=== PATIENT | female | born 1980 | race Caucasian/White ===

== ENCOUNTER 2025-10-03 19:16 | Emergency (ER) | payer MEDICAID ==
[~2025-10-03] VITALS: Ht 167.6 cm; Wt 80.1 kg
[2025-10-03 19:21] VITALS: O2SAT 99
[2025-10-03 20:12] LABS: BASOPHILS % 0.8 % (0.0-2.0); EOSINOPHILS % 2.3 % (0.0-5.0); HEMATOCRIT. 41.0 % (36.0-48.0); HEMOGLOBIN. 13.4 g/dL (12.0-16.0); LYMPHOCYTES % 31.1 % (20.0-50.0); MEAN PLATELET VOLUME 9.7 fl (7.4-10.4); MONOCYTES % 7.4 % (2.0-8.0); NEUTROPHILS % 58.4 % (40.0-76.0); PLATELET 298 x1000/uL (130-400); RED BLOOD CELL COUNT 4.55 mill/uL (4.2-5.4); RED CELL DISTRIBUTION WIDTH 13.7 % (11.6-14.6)
[2025-10-03 20:23] LABS: CREATININE 0.9 mg/dL (0.6-1.0); UREA NITROGEN BLOOD 14 mg/dL (9-23)
[2025-10-03 20:25] LABS: ASPARTATE AMINOTRANSFERASE 33 IU/L (<34); BILIRUBIN DIRECT < 0.1 mg/dL (<=3.0); BILIRUBIN TOTAL 0.3 mg/dL (0.1-1.0); TROPONIN I HIGH SENSITIVITY < 4 ng/L (3.0-34)
[2025-10-03 20:26] LABS: PROTEIN TOTAL 7.5 g/dL (6.0-8.3)
[2025-10-03] MEDS: KETOROLAC 15MG/ML VIAL IV ONE (20:57)
[2025-10-03] MEDS: ONDANSETRON HCL 4MG/2ML INJ IV ONE (20:57)
[2025-10-03] MEDS ORDERED: IBUP-2030 MT (21:29)
[2025-10-03 22:00] VITALS: BP 127/78; PULSE 78; RESP 16; TEMP 36.8; O2SAT 99
== END 2025-10-03 22:07 | disposition home or self-care (01) ==
LOC: ER 19:29 → CMPBEDREQ 10-04 08:10
DX: R07.89 Other chest pain (principal)
CPT/HCPCS: 80076; 80048; 81025; 83880; 83690; 85025; 84484; 36415; 71045; 93005; 96374; 96375; 99285; J1885; J2405; Z7610